=== PATIENT | male | born 1940 | race American Indian/Alaskan Native ===

== ENCOUNTER 2018-01-09 07:27 | Inpatient (IN) | payer OTHER, MEDICARE ==
--- NOTE | 2018-01-09 07:41 | C.PDOC ---
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 Patient works at [employer], states after he drank his Boost he suddenly felt "not himself", has generalized weakness and states he was having difficulty moving his right arm. He denies chest pain, SOB, headache, dizziness, palpitations, sensory changes, visual changes. Patient took multiple SL nitros at work, was given ASA 325mg in the field. EKG in the field concerning for STEMI (as per EMS). PMHx of HTN, hyperlipidemia, CAD, "cardiac surgeries" at 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) Current Symptoms Are (Timing): Still Present Severity: Moderate Past Medical History Reviewed: Historical Data, Nursing Documentation, Vital Signs Vital Signs: Last Vital Signs Temp 97.4 F L 01/11/18 15:00 Pulse 59 L 01/11/18 15:00 Resp 20 01/11/18 15:00 BP 150/80 01/11/18 17:45 Pulse Ox 97 01/11/18 15:00 - Medical History PMH: Arthritis (legs), HTN, Hypercholesterolemia Surgical History: Coronary Stent Family History: States: No Known Family Hx - Social History Hx Tobacco Use: No Hx Alcohol Use: No Hx Substance Use: No - Immunization History Hx Tetanus Toxoid Vaccination: No Hx Influenza Vaccination: No Hx Pneumococcal Vaccination: No Review Of Systems Constitutional: Positive for: Weakness (generalized ). Negative for: Fever, Chills Cardiovascular: Negative for: Chest Pain, Palpitations Respiratory: Negative for: Cough, Shortness of Breath Gastrointestinal: Negative for: Nausea, Vomiting, Abdominal Pain, Diarrhea Neurological: Positive for: Weakness (generalized and RUE), Altered Mental Status. Negative for: Numbness, Incoordination, Confusion, Seizures, Dizziness Physical Exam - Physical Exam Appears: Well, Non-toxic, No Acute Distress, Confused (mildly) Head: Atraumatic, Normacephalic Eye(s): bilateral: Normal Inspection, EOMI, Other (pinpoint pupils B/L ) Oral Mucosa: Moist Chest: Other (inferior sternal surgical scar in horizontal orientation) Cardiovascular: Rhythm Regular Respiratory: Normal Breath Sounds, No Rales, No Rhonchi, No Wheezing Gastrointestinal/Abdominal: Normal Exam, Bowel Sounds, Soft, No Tenderness Neurological/Psych: Oriented x3 (tangential thoughts, slow to respond ), Normal Speech, Normal Cognition, Normal Cranial Nerves, No Cerebellar Signs, Normal Motor, Normal Sensation, Normal Reflexes, No Dysarthria, No Romberg Gait: Steady ED Course And Treatment - Laboratory Results Result Diagrams: 01/09/18 07:37 01/09/18 07:37 ECG: Interpreted By Me, Viewed By Me (sinus rhythm 80 bpm, left axis deviation, PVCs, no acute ST/T wave changes) ECG Interpretation: Abnormal O2 Sat by Pulse Oximetry: 97 (ra) Pulse Ox Interpretation: Normal Progress Note: Blood work, EKG, CT head, UA, UDS ordered and reviewed. Patient sent to CT scan. EKG does not show ST elevations, and patient denies CP/SOB. Patient mildly confused and poor historian, but able to tell me that in mid December he had a similar episode, was taken to [facility] and had "exploratory cardiac surgery" that was normal - suspect patient had normal cardiac catheterization. - Physician Consult Information Physician Contacted: Zee Staton Outcome Of Conversation: Discussed patient with medicine bonding agent, she agrees with admission for AMS, TIA, generalized weakness. Critical Care Time - Critical Care Note Total Time (in mins): 35 Documented critical care: time excludes all time spent performing seperately billable procedures. NIHSS Stroke Scale - Date/Time Evaluation Performed Date Performed: 01/09/18 Time Performed: 07:30 When Was NIHSS Performed: Baseline - How Severe is the Stoke Level of Consciousness: 0=Alert LOC to Questions: 0=Both comments correct LOC to commands: 0=Obeys both correctly Best Gaze: 0=Normal Visual: 0=No visual loss Facial: 0=Normal Motor Arm - Left: 0=No drift Motor Arm - Right: 0=No drift Motor Leg - Left: 0=No drift Motor Leg - Right: 0=No drift Limb Ataxia: 0=Absent Sensory: 0=Normal Best Language: 0=No aphasia Dysarthia: 0=Normal articulation Extinction & Inattention (Neglect): 0=Normal, no object Score: 0 Severity Of Stroke: 0= No Stroke rTPA Inclusion/Exclusion - Refusal of Treatment Patient Refused Treatment: No - Inclusion Criteria for Altepase Patient is 18 years or Older: Yes The Clinical Diagnosis of Ischemic Stroke That is Causing a Potentially Disabling Neurological Deficit: No Time of Onset is Well Established to be Less Than 270 Minute Before Treatment Would Begin: Yes Risk/Benefit Discussed With Patient/Family Member Present: No Disposition - Disposition Disposition: HOSPITALIZED Disposition Time: 09:40 Condition: STABLE - Clinical Impression Clinical Impression: Altered mental status, Generalized weakness, Transient ischemic attack (TIA) Decision To Admit - Pt Status Changed To: Hospital Disposition Of: Inpatient - Admit Certification Admit to Inpatient:: After my assessment, the patient will require hospitalization for at least two midnights. This is because of the severity of symptoms shown, intensity of services needed, and/or the medical risk in this patient being treated as an outpatient. - InPatient: Physician Admission Certification: I certify that this patient requires 2 or more midnights of care for the following reason:: see notes - . Bed Request Type: Telemetry Admitting Physician: Zee Staton Patient Diagnosis: Transient ischemic attack (TIA), Altered mental status, Generalized weakness
[2018-01-09 07:44] LABS: BASO # 0.1 K/uL (0.0-0.2); EOS # 0.2 K/uL (0.0-0.7); EOS % 3.1 % (0.0-4.0); HEMOGLOBIN 13.9 g/dL (12.0-18.0); LYMPH % 36.5 % (20.0-40.0); MEAN CORPUSCULAR HEMOGLOBIN 28.2 pg (27.0-31.0); MEAN CORPUSCULAR HGB CONC 35.3 g/dL (33.0-37.0); MEAN PLATELET VOLUME 9.4 fL (7.2-11.7); MONO # 0.6 K/uL (0.0-0.8); MONO % 11.5 % (0.0-10.0); NEUT # 2.6 K/uL (1.8-7.0); NEUT % 47.9 % (50.0-75.0); NRBC % 0.2 % (0.0-2.0); RBC 4.93 Mil/uL (4.40-5.90); RED CELL DISTRIBUTION WIDTH 15.9 % (11.5-14.5); WHITE BLOOD COUNT 5.5 K/uL (4.8-10.8)
[2018-01-09 07:50] VITALS: BMI 26.9
[2018-01-09 08:03] LABS: INR 1.1; PROTHROMBIN TIME 11.5 SECONDS (9.7-12.2)
[2018-01-09 08:24] LABS: ALB/GLOB RATIO 1.3 (1.0-2.1); ALBUMIN 3.9 g/dL (3.5-5.0); ALT/SGPT 21 U/L (21-72); AST/SGOT 23 U/L (17-59); BLOOD UREA NITROGEN 24 mg/dL (9-20); CALCIUM 9.1 mg/dl (8.6-10.4); GFR NON-AFRICAN AMERICAN 45
[2018-01-09 08:38] LABS: CK-MB 1.51 ng/mL (0.0-3.38)
--- NOTE | 2018-01-09 08:40 | CT ---
Date of service: 01/09/2018 PROCEDURE: CT HEAD WITHOUT CONTRAST. HISTORY: weakness COMPARISON: None available. TECHNIQUE: Axial computed tomography images were obtained through the head/brain without intravenous contrast. Radiation dose: Total exam DLP = 1037 mGy-cm. This CT exam was performed using one or more of the following dose reduction techniques: Automated exposure control, adjustment of the mA and/or kV according to patient size, and/or use of iterative reconstruction technique. FINDINGS: HEMORRHAGE: No intracranial hemorrhage. Prominent streak artifact in the anterior frontal lobes; for example, focal areas of increased attenuation on series 4 images 39 through 44 are suggestive for prominent streak artifact. BRAIN: No mass effect or edema. Scattered focal lucencies in the subcortical and periventricular white matter suggestive for chronic microvascular ischemic change. Bilateral basal ganglia calcifications. VENTRICLES: Unremarkable. No hydrocephalus. CALVARIUM: Unremarkable. PARANASAL SINUSES: Unremarkable as visualized. No significant inflammatory changes. MASTOID AIR CELLS: Unremarkable as visualized. No inflammatory changes. OTHER FINDINGS: Intracranial vascular calcifications. Limited study secondary to suboptimal patient positioning and streak attenuation artifact IMPRESSION: Limited study secondary to suboptimal patient positioning and streak attenuation artifact. Chronic microvascular ischemic changes. No acute intracranial abnormality. If symptoms persist, consider correlation with MRI.
[2018-01-09 09:15] LABS: SQUAMOUS EPITHIAL 3 /hpf (0-5); URINE BACTERIA RARE (<OCC); URINE BILIRUBIN NEGATIVE (NEGATIVE); URINE BLOOD NEGATIVE (NEGATIVE); URINE CLARITY Hazy (Clear); URINE COLOR Yellow (YELLOW); URINE GLUCOSE (UA) NORMAL (Normal); URINE HYALINE CAST 0-2 /lpf (0-2); URINE LEUKOCYTE ESTERASE NEG Leu/uL (Negative); URINE PROTEIN 2+ mg/dL (NEGATIVE); URINE UROBILINOGEN NORMAL mg/dL (0.2-1.0)
[2018-01-09 09:24] LABS: BARBITURATES, UR NEGATIVE (NEGATIVE); BENZODIAZEPINES, UR NEGATIVE (NEGATIVE); OPIATES, UR NEGATIVE (NEGATIVE); PHENCYCLIDINE, UR NEGATIVE (NEGATIVE)
[2018-01-09] MEDS ORDERED: Sodium Chloride 0.9% 500 ML IV ONE ×2 (09:41→09:48)
--- NOTE | 2018-01-09 10:32 | RAD ---
Chest x-ray single frontal view History: Altered mental status. Comparison: 09/09/2014 Findings: Mild venous congestion. Right hilar prominence. Elevated right hemidiaphragm. Biapical pleural thickening with upper lobe granulomatous changes. Calcification at the aortic knob. Mild cardiomegaly. Degenerative changes in the spine and shoulders. Impression: Mild venous congestion. Right hilar prominence. Elevated right hemidiaphragm. Biapical pleural thickening with upper lobe granulomatous changes. Calcification at the aortic knob. Mild cardiomegaly.
--- NOTE | 2018-01-09 14:26 | CP.PCM.CON ---
History of Present Illness - History of Present Illness History of Present Illness: Neurology Consult Note - Dr Licea Patient is a 77 year old male with past medical history of HTN, HLD, CAD who presents to the emergency dept for altered mental status and weakness. Patient states that when he was at work this morning he was not feeling well. He drank a boost shake and started feeling lightheaded, disoriented, with blurry vision. Patient also reports having right arm and right leg weakness, felt like he couldn't move. He states that he was also experiencing shortness of breath with diaphoresis and felt like he was going to pass out. Patient states that he took nitro. He denies any chest pain. Patient reports that he vomited 2-3 times after drinking the boost shake. Patient states that he had a similar episode in December 2017 and was taken to [facility]. While there patient states that he had a normal cardiac catherization. At this time, patient states that he is feeling better. Offers no complaints at this time. CT head showed chronic microvascular ischemic changes. ED course: ASA 324mg PO x 1, NS bolus PMD: Dr Jackson Allergies: NKDA Medical History: Hypertension, Hyperlipidemia, CAD, BPH Surgical History: Right hip replacement, bilateral knee replacement, Cardiac catherization Social History: Denies alcohol, tobacco, drug use; lives with his , works for IT Past Patient History - Infectious Disease Hx of Infectious Diseases: None - Past Medical History & Family History Past Medical History?: Yes - Past Social History Smoking Status: Never Smoked - CARDIAC Hx Hypercholesterolemia: Yes Hx Hypertension: Yes - PULMONARY Hx Respiratory Disorders: No - NEUROLOGICAL Hx Neurological Disorder: No - HEENT Hx HEENT Problems: Yes Hx Cataracts: Yes Other/Comment: wear eyeglasses - RENAL Hx Chronic Kidney Disease: No - ENDOCRINE/METABOLIC Hx Endocrine Disorders: No - HEMATOLOGICAL/ONCOLOGICAL Hx Blood Disorders: No - INTEGUMENTARY Hx Dermatological Problems: No - MUSCULOSKELETAL/RHEUMATOLOGICAL Hx Arthritis: Yes (legs) - GASTROINTESTINAL Hx Gastrointestinal Disorders: No - GENITOURINARY/GYNECOLOGICAL Hx Prostate Cancer: Yes - PSYCHIATRIC Hx Substance Use: No - SURGICAL HISTORY Hx Coronary Stent: Yes - ANESTHESIA Hx Anesthesia: Yes Hx Anesthesia Reactions: No Hx Malignant Hyperthermia: No Meds Allergies/Adverse Reactions: Allergies Allergy/AdvReac Type Severity Reaction Status Date / Time No Known Allergies Allergy Verified 05/03/14 08:09 Physical Exam - Constitutional Appears: Well, No Acute Distress - Head Exam Head Exam: ATRAUMATIC, NORMAL INSPECTION - Eye Exam Eye Exam: EOMI, Normal appearance Additional comments: Pinpoint pupils bilaterally - Neck Exam Neck exam: Positive for: Full Rom - Respiratory Exam Respiratory Exam: NORMAL BREATHING PATTERN - Extremities Exam Extremities exam: Positive for: normal inspection, pedal pulses present - Neurological Exam Neurological exam: Alert, CN II-XII Intact, Oriented x3 - Expanded Neurological Exam Expanded Patient oriented to: person, place, time Neuro motor strength exam: Left Upper Extremity: 5, Right Upper Extremity: 5, Left Lower Extremity: 5, Right Lower Extremity: 5 - Psychiatric Exam Psychiatric exam: Normal Affect, Normal Mood - Skin Skin Exam: Dry, Normal Color, Warm Results - Vital Signs Recent Vital Signs: Last Vital Signs Temp 98.4 F 01/09/18 07:27 Pulse 79 01/09/18 14:00 Resp 22 01/09/18 14:00 BP 134/61 01/09/18 14:00 Pulse Ox 97 01/09/18 14:00 - Labs Result Diagrams: 01/09/18 07:37 01/09/18 07:37 Labs: Laboratory Results - last 24 hr 01/09/18 01/09/18 01/09/18 07:37 07:37 07:37 WBC 5.5 RBC 4.93 Hgb 13.9 Hct 39.4 MCV 80.0 MCH 28.2 MCHC 35.3 RDW 15.9 H Plt Count 169 MPV 9.4 Neut % (Auto) 47.9 L Lymph % (Auto) 36.5 [place] % (Auto) 11.5 H Eos % (Auto) 3.1 Baso % (Auto) 1.0 Neut # (Auto) 2.6 Lymph # (Auto) 2.0 [place] # (Auto) 0.6 Eos # (Auto) 0.2 Baso # (Auto) 0.1 PT 11.5 INR 1.1 APTT 28 Sodium 132 Potassium 3.8 Chloride 97 L Carbon Dioxide 25 Anion Gap 15 BUN 24 H Creatinine 1.5 Est GFR ( Amer) 55 Est GFR (Non-Af Amer) 45 POC Glucose (mg/dL) Random Glucose 168 H Calcium 9.1 Total Bilirubin 0.7 AST 23 ALT 21 D Alkaline Phosphatase 107 Total Creatine Kinase 182 H CK-MB (Mass) 1.51 Troponin I < 0.0120 Total Protein 7.0 Albumin 3.9 Globulin 3.1 Albumin/Globulin Ratio 1.3 Urine Color Urine Clarity Urine pH Ur Specific [place] Urine Protein Urine Glucose (UA) Urine Ketones Urine Blood Urine Nitrate Urine Bilirubin Urine Urobilinogen Ur Leukocyte Esterase Urine WBC (Auto) Urine RBC (Auto) Ur Squamous Epith Cells Urine Bacteria Hyaline Casts Urine Opiates Screen Urine Methadone Screen Ur Barbiturates Screen Ur Phencyclidine Scrn Ur Amphetamines Screen U Benzodiazepines Scrn U Oth Cocaine Metabols U Cannabinoids Screen 01/09/18 01/09/18 01/09/18 07:40 08:56 08:56 WBC RBC Hgb Hct MCV MCH MCHC RDW Plt Count MPV Neut % (Auto) Lymph % (Auto) [place] % (Auto) Eos % (Auto) Baso % (Auto) Neut # (Auto) Lymph # (Auto) [place] # (Auto) Eos # (Auto) Baso # (Auto) PT INR APTT Sodium Potassium Chloride Carbon Dioxide Anion Gap BUN Creatinine Est GFR ( Amer) Est GFR (Non-Af Amer) POC Glucose (mg/dL) 163 H Random Glucose Calcium Total Bilirubin AST ALT Alkaline Phosphatase Total Creatine Kinase CK-MB (Mass) Troponin I Total Protein Albumin Globulin Albumin/Globulin Ratio Urine Color Yellow Urine Clarity Hazy Urine pH 5.0 Ur Specific [place] 1.014 Urine Protein 2+ H Urine Glucose (UA) Normal Urine Ketones Negative Urine Blood Negative Urine Nitrate Negative Urine Bilirubin Negative Urine Urobilinogen Normal Ur Leukocyte Esterase Neg Urine WBC (Auto) 1 Urine RBC (Auto) < 1 Ur Squamous Epith Cells 3 Urine Bacteria Rare Hyaline Casts 0-2 Urine Opiates Screen Negative Urine Methadone Screen Negative Ur Barbiturates Screen Negative Ur Phencyclidine Scrn Negative Ur Amphetamines Screen Negative U Benzodiazepines Scrn Negative U Oth Cocaine Metabols Negative U Cannabinoids Screen Negative Assessment & Plan - Assessment and Plan (Free Text) Assessment: Altered Mental Status with Right sided weakness, likely due to TIA r/o CVA -Stable, afebrile -NIHSS is 0 at time of interview -CT head showed chronic microvascular ischemic changes (see full report) -We will order CTA head and neck as well as Brain MRI -Continue ASA 81mg PO daily, Simvastatin 40mg PO HS -Continue IV fluid hydration -F/U lipid panel, HgA1C, Vitamin B12, Vitamin D levels -Physical Therapy/Occupational Therapy evaluation -Will recommend obtaining medical records from [facility] for cardiac history/ workup Plan discussed with Dr Vinayak Walls DO PGY-2 NIHSS Stroke Scale - Date/Time Evaluation Performed Date Performed: 01/09/18 Time Performed: 14:30 - How Severe is the Stroke Level of Consciousness: 0=Alert LOC to Questions: 0=Both comments correct LOC to commands: 0=Obeys both correctly Best Gaze: 0=Normal Visual: 0=No visual loss Facial: 0=Normal Motor Arm - Left: 0=No drift Motor Arm - Right: 0=No drift Motor Leg - Left: 0=No drift Motor Leg - Right: 0=No drift Limb Ataxia: 0=Absent Sensory: 0=Normal Best Language: 0=No aphasia Dysarthia: 0=Normal articulation Extinction & Inattention (Neglect): 0=Normal, no object Score: 0
[2018-01-09 16:20] VITALS: RESP 20
[2018-01-09] MEDS ORDERED: Iodixanol 320 MG/ML 100 ML BOTTLE IV ONE (16:20)
--- NOTE | 2018-01-09 17:49 | MRI ---
Date of service: 01/09/2018 PROCEDURE: MRI BRAIN WITHOUT CONTRAST HISTORY: AMS COMPARISON: Noncontrast head CT from 01/09/2018. TECHNIQUE: Multiplanar, multisequence MR images of the brain were obtained without intravenous contrast enhancement. FINDINGS: HEMORRHAGE: None DWI: No evidence of an acute or early subacute infarction. BRAIN PARENCHYMA: There are mild chronic microangiopathic changes. There is no mass, mass effect or abnormal extra-axial fluid collection. There is no territorial infarction. The midline sagittal structures are normal. VENTRICLES: There is mild age-related global parenchymal volume loss and proportionate enlargement of the ventricles and cortical sulci. CRANIUM: There is normal bone marrow signal pattern. ORBITS: Grossly unremarkable. PARANASAL SINUSES/MASTOIDS: Predominantly clear. VASCULAR SYSTEM: There are normal signal voids in the larger intracranial arteries. OTHER FINDINGS: There is redemonstration of a left posterior occipital scalp lipoma. IMPRESSION: No acute intracranial abnormality. Specifically, no evidence for acute infarction. Mild chronic microangiopathic changes and mild age-related global parenchymal volume loss.
--- NOTE | 2018-01-09 17:58 | CP.PCM.HP ---
History of Present Illness - History of Present Illness History of Present Illness: PT DRING BOOST THEN VOMITED 3 ANASTACIO FELT CHEST TIGHTNESS HAD NITROSL BUT VOMITED IT FELT WEEKNESS R ARM AND LEG Present on Admission - Present on Admission Any Indicators Present on Admission: No Review of Systems - Review of Systems Systems not reviewed;Unavailable: Acuity of Condition, Altered Mental Status - Constitutional Constitutional: Excessive Sweating - EENT Eyes: As Per HPI Nose/Mouth/Throat: As Per HPI - Cardiovascular Cardiovascular: Chest Pain at Rest, Diaphoresis - Respiratory Respiratory: Dyspnea on Exertion - Gastrointestinal Gastrointestinal: Vomiting - Genitourinary Genitourinary: As Per HPI - Reproductive: Male Reproductive:Male: As Per HPI - Musculoskeletal Musculoskeletal: As Per HPI Additional comments: R ARM AND LOWER EXT FELT WEEKE - Integumentary Integumentary: As Per HPI - Neurological Neurological: Focal Weakness - Psychiatric Psychiatric: As Per HPI - Endocrine Endocrine: As Per HPI - Hematologic/Lymphatic Hematologic: As Per HPI Past Patient History - Infectious Disease Hx of Infectious Diseases: None - Past Medical History & Family History Past Medical History?: Yes - Past Social History Smoking Status: Never Smoked - CARDIAC Hx Cardiac Disorders: Yes Hx Hypercholesterolemia: Yes Hx Hypertension: Yes - PULMONARY Hx Respiratory Disorders: No - NEUROLOGICAL Hx Neurological Disorder: No - HEENT Hx HEENT Problems: Yes Hx Cataracts: Yes Other/Comment: wear eyeglasses - RENAL Hx Chronic Kidney Disease: No - ENDOCRINE/METABOLIC Hx Endocrine Disorders: No - HEMATOLOGICAL/ONCOLOGICAL Hx Blood Disorders: No - INTEGUMENTARY Hx Dermatological Problems: No - MUSCULOSKELETAL/RHEUMATOLOGICAL Hx Musculoskeletal Disorders: No Hx Falls: No - GASTROINTESTINAL Hx Gastrointestinal Disorders: No - GENITOURINARY/GYNECOLOGICAL Hx Genitourinary Disorders: Yes Hx Prostate Cancer: Yes - PSYCHIATRIC Hx Psychophysiologic Disorder: No Hx Substance Use: No - SURGICAL HISTORY Hx Surgeries: Yes Hx Coronary Stent: Yes Hx Orthopedic Surgery: Yes (bilateral knee replacements) - ANESTHESIA Hx Anesthesia: Yes Hx Anesthesia Reactions: No Hx Malignant Hyperthermia: No Meds Allergies/Adverse Reactions: Allergies Allergy/AdvReac Type Severity Reaction Status Date / Time No Known Allergies Allergy Verified 05/03/14 08:09 Physical Exam - Constitutional Appears: In Acute Distress - Head Exam Head Exam: ATRAUMATIC - Eye Exam Eye Exam: Normal appearance Pupil Exam: NORMAL ACCOMODATION - ENT Exam ENT Exam: Mucous Membranes Moist - Neck Exam Neck exam: Positive for: Normal Inspection - Respiratory Exam Respiratory Exam: NORMAL BREATHING PATTERN - Cardiovascular Exam Cardiovascular Exam: Irregular Rhythm Additional comments: PVC AND NON SUSTAINED VT - GI/Abdominal Exam GI & Abdominal Exam: Normal Bowel Sounds, Soft - Rectal Exam Rectal Exam: Deferred - Exam Exam: NORMAL INSPECTION - Extremities Exam Extremities exam: Positive for: normal inspection - Back Exam Back exam: NORMAL INSPECTION - Neurological Exam Neurological exam: Alert, Oriented x3 - Psychiatric Exam Psychiatric exam: Normal Affect - Skin Skin Exam: Normal Color Results - Vital Signs Recent Vital Signs: Last Vital Signs Temp 97.9 F 01/09/18 15:30 Pulse 60 01/09/18 15:30 Resp 20 01/09/18 15:30 BP 172/83 H 01/09/18 15:30 Pulse Ox 97 01/09/18 15:30 - Labs Result Diagrams: 01/09/18 07:37 01/09/18 07:37 Labs: Laboratory Results - last 24 hr 01/09/18 01/09/18 01/09/18 07:37 07:37 07:37 WBC 5.5 RBC 4.93 Hgb 13.9 Hct 39.4 MCV 80.0 MCH 28.2 MCHC 35.3 RDW 15.9 H Plt Count 169 MPV 9.4 Neut % (Auto) 47.9 L Lymph % (Auto) 36.5 [place] % (Auto) 11.5 H Eos % (Auto) 3.1 Baso % (Auto) 1.0 Neut # (Auto) 2.6 Lymph # (Auto) 2.0 [place] # (Auto) 0.6 Eos # (Auto) 0.2 Baso # (Auto) 0.1 PT 11.5 INR 1.1 APTT 28 Sodium 132 Potassium 3.8 Chloride 97 L Carbon Dioxide 25 Anion Gap 15 BUN 24 H Creatinine 1.5 Est GFR ( Amer) 55 Est GFR (Non-Af Amer) 45 POC Glucose (mg/dL) Random Glucose 168 H Calcium 9.1 Total Bilirubin 0.7 AST 23 ALT 21 D Alkaline Phosphatase 107 Total Creatine Kinase 182 H CK-MB (Mass) 1.51 Troponin I < 0.0120 Total Protein 7.0 Albumin 3.9 Globulin 3.1 Albumin/Globulin Ratio 1.3 Urine Color Urine Clarity Urine pH Ur Specific [place] Urine Protein Urine Glucose (UA) Urine Ketones Urine Blood Urine Nitrate Urine Bilirubin Urine Urobilinogen Ur Leukocyte Esterase Urine WBC (Auto) Urine RBC (Auto) Ur Squamous Epith Cells Urine Bacteria Hyaline Casts Urine Opiates Screen Urine Methadone Screen Ur Barbiturates Screen Ur Phencyclidine Scrn Ur Amphetamines Screen U Benzodiazepines Scrn U Oth Cocaine Metabols U Cannabinoids Screen 01/09/18 01/09/18 01/09/18 07:40 08:56 08:56 WBC RBC Hgb Hct MCV MCH MCHC RDW Plt Count MPV Neut % (Auto) Lymph % (Auto) [place] % (Auto) Eos % (Auto) Baso % (Auto) Neut # (Auto) Lymph # (Auto) [place] # (Auto) Eos # (Auto) Baso # (Auto) PT INR APTT Sodium Potassium Chloride Carbon Dioxide Anion Gap BUN Creatinine Est GFR ( Amer) Est GFR (Non-Af Amer) POC Glucose (mg/dL) 163 H Random Glucose Calcium Total Bilirubin AST ALT Alkaline Phosphatase Total Creatine Kinase CK-MB (Mass) Troponin I Total Protein Albumin Globulin Albumin/Globulin Ratio Urine Color Yellow Urine Clarity Hazy Urine pH 5.0 Ur Specific [place] 1.014 Urine Protein 2+ H Urine Glucose (UA) Normal Urine Ketones Negative Urine Blood Negative Urine Nitrate Negative Urine Bilirubin Negative Urine Urobilinogen Normal Ur Leukocyte Esterase Neg Urine WBC (Auto) 1 Urine RBC (Auto) < 1 Ur Squamous Epith Cells 3 Urine Bacteria Rare Hyaline Casts 0-2 Urine Opiates Screen Negative Urine Methadone Screen Negative Ur Barbiturates Screen Negative Ur Phencyclidine Scrn Negative Ur Amphetamines Screen Negative U Benzodiazepines Scrn Negative U Oth Cocaine Metabols Negative U Cannabinoids Screen Negative Assessment & Plan - Assessment and Plan (Free Text) Assessment: AC VOMITING AMS AC WEEKNESS R SIDE IMPROVED CAD DM C ARRYTHMIA HTN Plan: PERORDERS - Date & Time Date: 01/09/18 Time: 18:02
--- NOTE | 2018-01-09 18:35 | CT ---
PROCEDURE: CTA HEAD AND NECK WITH CONTRAST HISTORY: AMS COMPARISON: None available. TECHNIQUE: Initial noncontrast head CT was performed. Subsequently, CT angiogram of the head and neck were performed after the intravenous administration of 80 mL of Omnipaque 350. Contiguous 1.5mm thick images were obtained in the axial plane of the neck. 2-D coronal and sagittal MPR images were obtained. Imaging postprocessing was performed with 3-D images also obtained. A delayed contrast head CT was also obtained. This CT exam was performed using one or more of the following dose reduction techniques: Automated exposure control, adjustment of the mA and/or kV according to patient size, and/or use of iterative reconstruction technique. Contrast dose: 100 mL Visipaque Radiation dose: Total exam DLP = 599.25 mGy-cm. FINDINGS: HEAD: Right: The intracranial internal carotid artery, and anterior and middle cerebral arteries are widely patent. Left: The intracranial internal carotid artery, and anterior and middle cerebral arteries are widely patent. Posterior circulation: The visualized intracranial vertebral arteries, basilar artery and posterior cerebral arteries are widely patent. There is no endoluminal filling defect to suggest thrombus. There is no intracranial saccular aneurysm. There is no abnormal enhancement on the postcontrast CT. NECK: There is a three vessel aortic arch. There is no stenosis at the origins of the great vessels at the level of the aortic arch. Right Carotid: On the right, the common carotid, internal carotid and external carotid arteries are widely patent. There is no hemodynamically significant stenosis in the internal carotid artery by NASCET criteria. Left Carotid: On the left, the common carotid, internal carotid and external carotid arteries are widely patent.There is no hemodynamically significant stenosis in the internal carotid arteries. There is no hemodynamically significant stenosis in the internal carotid artery by NASCET criteria. The vertebral arteries are widely patent. The vertebral arteries are codominant. The visualized soft tissues of the neck are normal. The visualized brain and cervical spine are within normal limits. The lung apices are clear. There is an enlarged multinodular thyroid gland. IMPRESSION: 1. No evidence of endoluminal thrombus,occlusion or definite significant stenosis in the intracranial arteries. 2. No evidence of hemodynamically significant stenosis in the internal carotid arteries. 3. Patent bilateral vertebral arteries. 4. Enlarged multinodular thyroid gland. A dedicated thyroid ultrasound on a nonemergent basis is recommended for further evaluation.
--- NOTE | 2018-01-09 19:19 | CARD ---
APPROVED REPORT Date of service: 01/09/2018 EKG Measurement Heart [id number] <Conclusion> Sinus rhythm with occasional premature ventricular complexes Left axis deviation Nonspecific T wave abnormality Abnormal ECG
--- NOTE | 2018-01-10 07:34 | CP.PCM.PN ---
Subjective - Date & Time of Evaluation Date of Evaluation: 01/10/18 Time of Evaluation: 07:32 - Subjective Subjective: Mr. Ellison was seen and examined at the bedside. He is alert, oriented x3, denies any headache, dizziness, lightheadedness, blurred vision, diplopia, nausea, or vomiting. He is able to follow all commands. There was no untoward events overnight. Objective - Vital Signs/Intake and Output Vital Signs (last 24 hours): Temp Pulse Resp BP Pulse Ox 98.0 F 74 20 151/82 H 96 01/09/18 23:30 01/10/18 07:31 01/09/18 23:30 01/09/18 23:30 01/09/18 23:30 Intake and Output: 01/10/18 01/10/18 06:59 18:59 Output Total 1200 Balance -1200 - Medications Medications: Current Medications Aspirin (Ecotrin) 81 mg PO DAILY [facility] Losartan Potassium (Cozaar) 100 mg PO DAILY [facility] Metoprolol Tartrate (Lopressor) 50 mg PO DAILY [facility] Rosuvastatin Calcium (Crestor) 10 mg PO HS [facility] Last Admin: 01/09/18 21:48 Dose: 10 mg - Labs Labs: 01/09/18 07:37 01/09/18 07:37 PT 11.5 SECONDS (9.7-12.2) 01/09/18 07:37 INR 1.1 01/09/18 07:37 APTT 28 SECONDS (21-34) 01/09/18 07:37 - Constitutional Appears: No Acute Distress - Head Exam Head Exam: NORMAL INSPECTION - Eye Exam Pupil Exam: PERRL Additional comments: with cloudiness noted around his pupils, brisk in reactive. - Neurological Exam Neurological Exam: Alert, Awake, Oriented x3 Neuro motor strength exam: Left Upper Extremity: 5, Right Upper Extremity: 5, Left Lower Extremity: 5, Right Lower Extremity: 5 Additional comments: no neuro deficits. Assessment and Plan (1) Transient ischemic attack (TIA) Assessment & Plan: Continue all current medical, physical, occupational therapies. Pending stroke work up lab. result.Recommend echocardiogram, blood pressure control, treat any electrolyte abnormalities. Status: Acute
[2018-01-10 09:03] LABS: HDL CHOLESTEROL 47 mg/dL (30-70)
[2018-01-10 09:14] LABS: LDL CHOLESTEROL 84 mg/dL (0-129)
[2018-01-10] MEDS: Enoxaparin 40 mg Syringe SC SCH (09:30)
--- NOTE | 2018-01-10 09:39 | CP.PCM.PN ---
Subjective - Date & Time of Evaluation Date of Evaluation: 01/10/18 Time of Evaluation: 09:36 - Subjective Subjective: pt feels beter no weekness of any ext today but ekg abnormal had chest pain Objective - Vital Signs/Intake and Output Vital Signs (last 24 hours): Temp Pulse Resp BP Pulse Ox 98.4 F 74 20 176/88 H 99 01/10/18 07:00 01/10/18 07:31 01/10/18 07:00 01/10/18 07:00 01/10/18 07:00 Intake and Output: 01/10/18 01/10/18 06:59 18:59 Output Total 1200 Balance -1200 - Medications Medications: Current Medications Aspirin (Ecotrin) 81 mg PO DAILY [facility] Last Admin: 01/10/18 09:30 Dose: 81 mg Enoxaparin Sodium (Lovenox) 40 mg SC DAILY [facility] Last Admin: 01/10/18 09:30 Dose: 40 mg Famotidine (Pepcid) 40 mg PO [facility] Losartan Potassium (Cozaar) 100 mg PO DAILY [facility] Last Admin: 01/10/18 09:29 Dose: 100 mg Metoprolol Tartrate (Lopressor) 50 mg PO DAILY [facility] Last Admin: 01/10/18 09:30 Dose: 50 mg Rosuvastatin Calcium (Crestor) 10 mg PO [facility] Last Admin: 01/09/18 21:48 Dose: 10 mg - Labs Labs: 01/09/18 07:37 01/09/18 07:37 PT 11.5 SECONDS (9.7-12.2) 01/09/18 07:37 INR 1.1 01/09/18 07:37 APTT 28 SECONDS (21-34) 01/09/18 07:37 - Constitutional Appears: Non-toxic - Head Exam Head Exam: NORMAL INSPECTION - Eye Exam Eye Exam: Normal appearance Pupil Exam: NORMAL ACCOMODATION - ENT Exam ENT Exam: Normal Exam - Neck Exam Neck Exam: Full ROM - Respiratory Exam Respiratory Exam: Clear to Ausculation Bilateral - Cardiovascular Exam Cardiovascular Exam: Irregular Rhythm, REGULAR RHYTHM - GI/Abdominal Exam GI & Abdominal Exam: Normal Bowel Sounds - Extremities Exam Extremities Exam: Normal Inspection - Back Exam Back Exam: NORMAL INSPECTION - Neurological Exam Neurological Exam: Normal Gait - Psychiatric Exam Psychiatric exam: Suicidal Ideation - Skin Skin Exam: Normal Color Assessment and Plan - Assessment and Plan (Free Text) Assessment: ac tia cad htn Plan: cardiology kalie and ekg
--- NOTE | 2018-01-10 20:16 | CARD ---
APPROVED REPORT Date of service: 01/10/2018 EXAM: Two-dimensional and M-mode echocardiogram with Doppler and color Doppler. Other Information Quality : GoodRhythm : INDICATION CVA/TIA Syncope RISK FACTORS Hypertension 2D DIMENSIONS IVSd1.3 (0.7-1.1cm)LVDd4.7 (3.9-5.9cm) PWd1.3 (0.7-1.1cm)LVDs4.0 (2.5-4.0cm) FS (%) 16.6 %LVEF (%)34.8 (>50%) M-Mode DIMENSIONS Left Atrium (MM)5.41 (2.5-4.0cm)IVSd1.26 (0.7-1.1cm) Aortic Root3.84 (2.2-3.7cm)LVDd5.38 (4.0-5.6cm) Aortic Cusp Exc.2.31 (1.5-2.0cm)PWd1.33 (0.7-1.1cm) FS (%) 23 %LVDs4.12 (2.0-3.8cm) LVEF (%)35 (>50%) Mitral Valve MV E Cpdgpiyn25.0cm/sMV A Vkdnyqaf94.1cm/sE/A ratio0.5 TDI E/Lateral E'0.0E/Medial E'0.0 Tricuspid Valve TR Peak Ottmkztn416nk/sTR Peak Gr.28jbGaJNMJ75kbDl
--- NOTE | 2018-01-10 22:01 | CON ---
DATE: 01/10/2018 CARDIOLOGY CONSULTATION HISTORY OF PRESENT ILLNESS: The patient is a 77-year-old male who is being treated at the [facility], presented because of generalized weakness as well as altered mental status, 20-30 minutes prior to his admission, the patient also reported difficulty moving his right arm. The patient denies any chest pain. The patient stated that he underwent cardiac catheterization in 12/2017 at [facility] and was told he has no blockages. The patient denies any speech difficulty and at this time denies any weakness. SOCIAL HISTORY: The patient is nonsmoker. He lives with his and has grown-up children. MEDICATIONS: Cozaar 100 mg daily, Crestor 10 mg once a day, aspirin 81 mg once a day, Lopressor 50 mg once a day, Lovenox 40 mg subcutaneously once a day, Pepcid 20 mg p.o. once a day. REVIEW OF SYSTEMS: No fever or chills. No nausea or vomiting. No retrosternal chest pain. PHYSICAL EXAMINATION: GENERAL: The patient is an elderly male who does not appear to be in acute distress. VITAL SIGNS: Blood pressure 176/88, heart rate 65, temperature 98.4, respirations 20. HEENT: Normocephalic. NECK: No JVD. CHEST: Clear. HEART: S1 and S2 are regular. EXTREMITIES: A scar of bilateral total knee replacement noted. LABORATORY DATA: Today's SMA-7: Sodium 132, potassium 3.8, chloride 97, CO2 is 25, glucose 168, BUN 24, creatinine 1.5. One set of troponin is negative. Hemoglobin and hematocrit 13.9 and 39.4, white count 5.5, platelet count 169,000. Urine drug screen is negative. PT, INR are within normal limits. EKG revealed sinus rhythm at the rate of 65 with nonspecific lateral T-wave changes. CT angio of the head and neck revealed no evidence of endoluminal thrombus occlusion or definite significant stenosis in the intracranial arteries. No evidence of hemodynamically significant stenosis in the internal carotid arteries. Brain MRI revealed no acute intracranial abnormality. Mild chronic microangiopathic changes. Chest x-ray report, mild venous congestion, right hilar prominence. Elevated right hemidiaphragm, biapical pleural thickening, calcification at the aortic knob. Mild cardiomegaly. ASSESSMENT: 1. Uncontrolled hypertension. 2. . 3. Mild congestive heart failure. 4. Hyperglycemia. The patient's hemoglobin A1c was 5.3. RECOMMENDATIONS: Continue Cozaar 100 mg once a day, Crestor 10 mg once a day, aspirin 81 mg once a day, Lopressor 50 mg once a day, Lovenox 40 mg once a day. I would review the echocardiographic study performed today and obtain most recent cardiac catheterization report performed in 12/2017 at [facility]. Connor Cruz MD
[2018-01-11 00:25] VITALS: O2SAT 97
--- NOTE | 2018-01-11 10:02 | CP.PCM.PN ---
Subjective - Date & Time of Evaluation Date of Evaluation: 01/11/18 Time of Evaluation: 09:59 - Subjective Subjective: pt feels good no weekness no chest pain no nausea Objective - Vital Signs/Intake and Output Vital Signs (last 24 hours): Temp Pulse Resp BP Pulse Ox 97.9 F 81 20 161/85 H 97 01/11/18 07:00 01/11/18 08:00 01/11/18 07:00 01/11/18 07:00 01/11/18 07:00 Intake and Output: 01/11/18 01/11/18 06:59 18:59 Output Total 1400 Balance -1400 - Medications Medications: Current Medications Amlodipine Besylate (Norvasc) 10 mg PO DAILY@1800 [facility] Last Admin: 01/10/18 17:56 Dose: 10 mg Aspirin (Ecotrin) 81 mg PO DAILY [facility] Last Admin: 01/10/18 09:30 Dose: 81 mg Enoxaparin Sodium (Lovenox) 40 mg SC DAILY [facility] Last Admin: 01/10/18 09:30 Dose: 40 mg Famotidine (Pepcid) 20 mg PO [facility] Last Admin: 01/10/18 21:51 Dose: 20 mg Losartan Potassium (Cozaar) 100 mg PO DAILY [facility] Last Admin: 01/10/18 09:29 Dose: 100 mg Metoprolol Tartrate (Lopressor) 50 mg PO DAILY [facility] Last Admin: 01/10/18 09:30 Dose: 50 mg Rosuvastatin Calcium (Crestor) 10 mg PO [facility] Last Admin: 01/10/18 21:51 Dose: 10 mg - Labs Labs: 01/09/18 07:37 01/09/18 07:37 PT 11.5 SECONDS (9.7-12.2) 01/09/18 07:37 INR 1.1 01/09/18 07:37 APTT 28 SECONDS (21-34) 01/09/18 07:37 - Constitutional Appears: Non-toxic - Head Exam Head Exam: NORMAL INSPECTION - Eye Exam Eye Exam: Normal appearance Pupil Exam: NORMAL ACCOMODATION - ENT Exam ENT Exam: Normal Exam - Neck Exam Neck Exam: Full ROM - Respiratory Exam Respiratory Exam: NORMAL BREATHING PATTERN - Cardiovascular Exam Cardiovascular Exam: REGULAR RHYTHM - Rectal Exam Rectal Exam: NORMAL INSPECTION - Exam Exam: NORMAL INSPECTION External exam: NORMAL EXTERNAL EXAM - Extremities Exam Extremities Exam: Pedal Edema - Back Exam Back Exam: NORMAL INSPECTION - Neurological Exam Neurological Exam: Alert, Awake, Normal Gait, Oriented x3 - Psychiatric Exam Psychiatric exam: Normal Affect - Skin Skin Exam: Normal Color Assessment and Plan - Assessment and Plan (Free Text) Assessment: tia cardiac arythmia htn Plan: d/c home f/u [facility] cont all med
--- NOTE | 2018-01-11 10:16 | CP.PCM.PN ---
Subjective - Date & Time of Evaluation Date of Evaluation: 01/11/18 Time of Evaluation: 10:14 - Subjective Subjective: PATIENT WAS ADMITTED AMS TIA AND GENERALIZED WEAKNESS Objective - Vital Signs/Intake and Output Vital Signs (last 24 hours): Temp Pulse Resp BP Pulse Ox 97.9 F 81 20 161/85 H 97 01/11/18 07:00 01/11/18 08:00 01/11/18 07:00 01/11/18 07:00 01/11/18 07:00 Intake and Output: 01/11/18 01/11/18 06:59 18:59 Output Total 1400 Balance -1400 - Medications Medications: Current Medications Amlodipine Besylate (Norvasc) 10 mg PO DAILY@1800 [facility] Last Admin: 01/10/18 17:56 Dose: 10 mg Aspirin (Ecotrin) 81 mg PO DAILY [facility] Last Admin: 01/10/18 09:30 Dose: 81 mg Enoxaparin Sodium (Lovenox) 40 mg SC DAILY [facility] Last Admin: 01/10/18 09:30 Dose: 40 mg Famotidine (Pepcid) 20 mg PO [facility] Last Admin: 01/10/18 21:51 Dose: 20 mg Losartan Potassium (Cozaar) 100 mg PO DAILY [facility] Last Admin: 01/10/18 09:29 Dose: 100 mg Metoprolol Tartrate (Lopressor) 50 mg PO DAILY [facility] Last Admin: 01/10/18 09:30 Dose: 50 mg Rosuvastatin Calcium (Crestor) 10 mg PO [facility] Last Admin: 01/10/18 21:51 Dose: 10 mg - Labs Labs: 01/09/18 07:37 01/09/18 07:37 PT 11.5 SECONDS (9.7-12.2) 01/09/18 07:37 INR 1.1 01/09/18 07:37 APTT 28 SECONDS (21-34) 01/09/18 07:37 Assessment and Plan - Assessment and Plan (Free Text) Assessment: PATIENT SEEN AND EXAMINED AT THE BEDSIDE DICSUSS WITH DR RODRÍGUEZ PATIENT NEED TO F/U WITH [facility] AND CLEAR HIM FOR DC FOLLOW UP WITH DR RODRÍGUEZ AT HER OFFICE ---CALL FOR APPOITEMNT FOLLOW UP WITH [facility] CONTINUE ALL HOME MEDICATION NEW PRESCRIPTION GIVEN IMDUR 60 MG PO DAILY [facility] TOLERATED CALL DR RODRÍGUEZ OR GO TO THE EMERGENCY ROOM IF SYMPTOMS OR WORSENING DISCUSS WITH PATIENT WHO AGREE AND VERBALIZED UNDERSTANDING
[2018-01-11] MEDS: Enoxaparin 40 mg Syringe SC SCH (10:20)
--- NOTE | 2018-01-11 13:03 | CARD ---
APPROVED REPORT Date of service: 01/10/2018 EKG Measurement Heart [id number] <Conclusion> Normal sinus rhythm Left axis deviation Nonspecific T wave abnormality Abnormal ECG
[2018-01-11 16:21] VITALS: PULSE 59; TEMP 97.4
[2018-01-11 18:05] VITALS: BP 150/80
--- NOTE | 2018-01-11 18:11 | PN ---
DATE: 01/11/2018 SUBJECTIVE: The patient denies any retrosternal chest pain. Attempts to open a cardiac catheterization from [facility] were unsuccessful. I was informed that no records for cardiac catheterization are available at [facility]. PHYSICAL EXAMINATION: VITAL SIGNS: Blood pressure 172/96, heart rate 81, temperature 97.9, and respirations 20. HEENT: Normocephalic. CHEST: Clear. HEART: S1 and S2 regular. EXTREMITIES: No edema. Echocardiographic study revealed significantly reduced left ventricular systolic function. Ejection fraction was measured at 35%. Various older reports are not available, and for technical reason, I have difficulty opening the study itself. ASSESSMENT: 1. Cardiomyopathy. 2. Rule out transient ischemic attack. 3. Uncontrolled hypertension. RECOMMENDATIONS: Continue Cozaar at 100 mg daily, aspirin 81 mg once a day, Lopressor 50 mg once a day, Lovenox 40 mg subcutaneously once a day, Norvasc 10 mg once a day. Start Aldactone at 12.5 mg orally once a day. I will discuss with the family where cardiac catheterization was performed, and if it was never performed, then the patient needs to have cardiac catheterization either at [facility] or at the [facility] to evaluate his congestive heart failure. Connor Cruz MD
== END 2018-01-11 18:05 | disposition home or self-care (01) | DRG 69 ==
LOC: C.ER 07:27 → C.9E 09:40 → C.6T 13:48
PROVIDERS: ADMIT Internal Medicine; ATTEND Internal Medicine
DX: G45.9 Transient cerebral ischemic attack, unspecified (principal); I42.9 Cardiomyopathy, unspecified; R53.1 Weakness; E78.5 Hyperlipidemia, unspecified; E11.65 Type 2 diabetes mellitus with hyperglycemia; I11.0 Hypertensive heart disease with heart failure; I25.10 Atherosclerotic heart disease of native coronary artery without angina pectoris; I50.9 Heart failure, unspecified; N40.0 Benign prostatic hyperplasia without lower urinary tract symptoms; Z85.46 Personal history of malignant neoplasm of prostate; Z95.5 Presence of coronary angioplasty implant and graft; Z96.641 Presence of right artificial hip joint; Z96.653 Presence of artificial knee joint, bilateral